=== PATIENT | female | born 1985 | race Asian ===

== ENCOUNTER 2017-02-26 03:00 | Emergency (ER) | payer MEDICAID, OTHER ==
[~2017-02-26] VITALS: Ht 162.6 cm; Wt 55.0 kg
[2017-02-26 03:12] VITALS: Ht 162.6 cm; Wt 55.0 kg
[2017-02-26] MEDS ORDERED: KETOROLAC 60 MG INJ IM STA (04:10)
[2017-02-26] MEDS ORDERED: DIAZEPAM 5 MG/ML SYG IM ONE ×3 (04:30→13:30)
[2017-02-26] MEDS ORDERED: morphine 10 MG INJ IM ONE (04:30)
--- NOTE | 2017-02-26 05:28 | ERD ---
ER Documentation Chief Complaint Date/Time DATE: 02/26/17 TIME: 05:22 Chief Complaint pt reports low back pain and threw back out HPI 32-year-old female comes in for increasing severe lower back pain. She was lifting and doing lifts but did not have the pain immediately then. She currently has no leg weakness but her back hurts so bad when she attempts to walk. Pain is worse on the right this is happened to her though not as severely a few times over the last couple years the last being in October. She has no nausea vomiting or any other systemic symptoms. She has no numbness around her buttock. ROS All systems reviewed and are negative except as per history of present illness. Allergies Allergies: Coded Allergies: Penicillins (Verified Allergy, Unknown, 02/26/17) amoxicillin (Verified Allergy, Unknown, 02/26/17) clindamycin (Verified Allergy, Unknown, 02/26/17) PMhx/Soc History of Surgery: Yes (BREAST AUGMENTATION) Anesthesia Reaction: No Hx Neurological Disorder: No Hx Respiratory Disorders: No Hx Cardiac Disorders: No Hx Psychiatric Problems: No Hx Miscellaneous Medical Probl: Yes (ULCERATIVE COLITIS) Hx Alcohol Use: Yes (FORMER) Hx Substance Use: Yes (FORMER) Hx Tobacco Use: No Smoking Status: Never smoker Physical Exam Vitals Vital Signs Date Time Temp Pulse Resp B/P Pulse Ox O2 Delivery O2 Flow Rate FiO2 02/26/17 03:12 98.3 65 18 115/67 99 Physical Exam Const: [] Moderate distress, appears very uncomfortables Skin: No petechiae or rashes Back: Mild right-sided paraspinal lumbar muscle spasm with moderate bilateral lumbar muscle spasm. Ext: No cyanosis, or edema, distal pulses intact bilateral lower extremities , unable to fully test strength as patient has significant pain on flexion of hips Neur: Awake and alert and oriented 3, sensation intact bilateral lower extreme Psych: Normal Mood and Affect Results 24 hrs Current Medications Medications (Trade) Dose Ordered Sig/Michaelle Route PRN Reason Start Time Stop Time Status Last Admin Dose Admin Morphine Sulfate (morphine) 4 mg ONCE ONCE IM 02/26/17 04:30 02/26/17 04:31 DC 02/26/17 04:48 Diazepam (Valium) 5 mg ONCE ONCE IM 02/26/17 04:30 02/26/17 04:31 DC 02/26/17 04:47 Ketorolac Tromethamine (Toradol) 60 mg ONCE STAT IM 02/26/17 04:10 02/26/17 04:12 DC 02/26/17 04:48 Procedures/MDM Severe low back pain with history of lifting. Possible herniated disc. Patient was given IM morphine, Valium, [place] which did help with her pain however she still has significant pain and feels unsteady trying to walk with a severe pain. Patient is young and I believe a CT lumbar spine would be the appropriate study of choice. I have low suspicion for cauda equina syndrome as patient has no urinary changes or saddle anesthesia. Does not have any specific leg weakness peer MRI with me much better to look for any disc problems and herniation of disc. Ordering an MRI. Is also be signed out to the oncoming physician. Anticipate the patient will be discharged with pain medicines. I am providing Norflex and naproxen if she does not want to have narcotic pills. Departure Diagnosis: Primary Impression: Injury of back Additional Impression: Lumbar back pain Condition: Stable ANIKA LU DO Feb 26, 2017 05:28
[2017-02-26] MEDS ORDERED: ORPH100T PO (05:29)
[2017-02-26] MEDS ORDERED: NAPR-688 PO (05:29)
[2017-02-26] MEDS ORDERED: KETOROLAC 60 MG INJ ONE (05:43)
[2017-02-26] MEDS ORDERED: morphine 10 MG INJ ONE (05:43)
[2017-02-26] MEDS ORDERED: DIAZEPAM 5 MG/ML SYG ONE (05:43)
[2017-02-26] MEDS ORDERED: HYDROmorphONE 1 MG/ML SYG IM STA ×2 (07:42→13:21)
--- NOTE | 2017-02-26 12:06 | RADRPT ---
PROCEDURE: MRI lumbar spine without contrast CLINICAL INDICATION: Low back pain with bilateral lower extremity weakness. TECHNIQUE: An MRI of the lumbar spine was performed utilizing the following sequences: sagittal an d axial T1 weighted, sagittal and axial T2 weighted, and sagittal T2 weighted with fat saturation. COMPARISON: None available. FINDINGS: There is a normal lordosis of the lumbar spine. No vertebral body subluxation is evident. The ve rtebral bodies are normal in height. There is no focal suspicious bone marrow signal abnormality. T he conus medullaris is visible at the L2 level, and is normal in appearance. T12 - L1: The disk height and signal intensity are preserved. No posterior disk bulge or herniati on. No significant spinal canal or foraminal stenosis. L1 - L2: The disk height and signal intensity are preserved. No posterior disk bulge or herniatio n. No significant spinal canal or foraminal stenosis. L2 - L3: The disk height and signal intensity are preserved. No posterior disk bulge or herniation . No significant spinal canal or foraminal stenosis. L3 - L4: The disk height is mildly to moderately decreased with disk desiccation. There is 3-4 mm d iffuse disk bulge with associated annular fissure. Mild bilateral foraminal narrowing is noted. No significant spinal canal stenosis. L4 - L5: The disk height is mildly to moderately decreased with disk desiccation. There is 3-4 mm d iffuse disk bulge with associated annular fissure. Mild bilateral facet arthropathy is noted. Mild bilateral foraminal narrowing is noted. No significant spinal canal stenosis. L5 - S1: The disk height is mildly to moderately decreased with disk desiccation. There is 3 mm di ffuse disk bulge with associated annular fissure. Mild bilateral facet arthropathy is noted. Mild b ilateral foraminal narrowing is noted. No significant spinal canal stenosis. IMPRESSION: 1. 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 2. Multilevel mild disk bulges at L3-L4, L4-5 and L5-S1 with associated annular fissure without sig nificant spinal canal stenosis. 3. Mild bilateral foraminal narrowing at L3-L4, L4-5 and L5-S1. RPTAT: QQ .Tina Torres MD, MD Date Time Electronically viewed and signed by .Tina Torres MD, MD on 02/26/2017 12:06 .N/
[2017-02-26 13:52] VITALS: BP 121/67; PULSE 75; RESP 19; TEMP 98.2
== END 2017-02-26 13:53 | disposition home or self-care (01) ==
LOC: FTE 03:00
DX: S39.92XA Unspecified injury of lower back, initial encounter (principal); X50.0XXA Overexertion from strenuous movement or load, initial encounter; Y92.9 Unspecified place or not applicable
CPT/HCPCS: 72148; 96372; 99284; J1170; J1885; J2270; J3360

== ENCOUNTER 2017-08-05 16:20 | Emergency (ER) | END 2017-08-05 19:00 | disposition home or self-care (01) ==

== ENCOUNTER 2017-08-14 10:43 | Emergency (ER) | END 2017-08-14 14:25 | disposition home or self-care (01) ==